=== PATIENT | female | born 1965 | race Caucasian/White ===

== ENCOUNTER 2018-02-16 20:19 | Observation (INO) ==
[2018-02-16] MEDS ORDERED: 0.9 % Sodium Chloride 1,000 ML IVC ONE (22:14)
--- NOTE | 2018-02-16 22:52 | Emergency Department Note ---
Disposition Clinical Impression: C. difficile colitis Sepsis Qualifiers: Sepsis type: sepsis due to unspecified organism Qualified Code(s): A41.9 - Sepsis, unspecified organism UTI (urinary tract infection) Qualifiers: Urinary tract infection type: site unspecified Hematuria presence: without hematuria Qualified Code(s): N39.0 - Urinary tract infection, site not specified Pneumonia Qualifiers: Pneumonia type: due to unspecified organism Laterality: left Lung location: lower lobe of lung Qualified Code(s): J18.1 - Lobar pneumonia, unspecified organism Disposition: Admitted As Inpatient Condition: Fair Time of Disposition: 00:07 Abdominal Pain HPI - General Chief Complaint: ED Abdominal Pain Stated Complaint: C-Diff per Dr. Pierre Time Seen by Provider: 02/16/18 21:01 Source: patient Mode of arrival: ambulatory Limitations: no limitations Nursing Notes Reviewed: Yes Vital Signs Reviewed: Yes - History of Present Illness HPI Narrative: 52-year-old female history of ulcerative colitis presents complaining of diarrhea and fever for the last week. Patient states she was diagnosed with C. difficile 1 week ago, she was initially started on Flagyl but then switched to oral vancomycin, she follows with Dr. ALEMAN her GI specialist, she called him today, given that she is having worsening abdominal pain fevers of 101, and was told to come in for further evaluation the hospital. Patient denies headache chest pain, she has had a dry cough as well. Patient denies dysuria hematuria. Dr. ALEMAN states that the patient should be admitted to the hospitalist Pt Subjective Complaint: abdominal pain Consistency: constant Pain Severity: moderate Pain Scale: 5 Quality: aching Radiation: none Migration to: no migration Improves with: nothing Associated symptoms: Reports: nausea, vomiting, diarrhea. Denies: fever - Related Data Home Medications Medication Instructions Recorded Confirmed Budesonide [Uceris] 9 mg PO DAILY 02/17/18 02/17/18 Lactobac #2-S. Therm-Bifido #1 1 tab PO BID 02/17/18 02/17/18 [Vsl#3 Capsule] Previous Rx's Medication Instructions Recorded Vancomycin Oral Soln [Firvanq] 125 mg PO QID 10 Days #1 udc 02/15/18 Allergies Allergy/AdvReac Type Severity Reaction Status Date / Time No Known Allergies Allergy Verified 02/15/18 18:38 All systems ED: reviewed and negative except as stated. Review of Systems: As Per HPI Constitutional: Denies: fever, chills Eyes: Denies: eye pain ENT ED: Denies: ear pain Cardiovascular: Denies: chest pain Respiratory: Reports: as per HPI, cough. Denies: dyspnea, wheezes Gastrointestinal: Reports: as per HPI, abdominal pain, nausea, diarrhea. Denies : hematemesis Genitourinary: Denies: urgency, dysuria Musculoskeletal: Denies: back pain, neck pain Integumentary: Denies: rash Abdominal Pain PMH - Past Medical History Medical history: Reports: other - Social History Smoking status: Never smoker Alcohol use: Reports: none Drug use: Reports: none Physical Exam - General General appearance: alert, in no apparent distress - Head Head exam: atraumatic - Eye Eye exam: Present: normal appearance, PERRL - ENT ENT exam: normal exam - Neck Neck exam: Present: normal inspection, full ROM - Chest Chest inspection: Present: normal inspection - Expanded Respiratory Exam Location: rales: Left, Right, decreased breath sounds: Right, Left, Lower - Cardiovascular Cardiovascular exam: Present: regular rate, normal rhythm - Abdominal Exam Abdominal exam: Present: tenderness. Absent: guarding, rebound Abdominal tenderness: Present: mild Course Course Narrative: 52-year-old female with ulcerative colitis, C. difficile, also patient is a cough, some decreased breath sounds at bases bilaterally, concern for possible pneumonia versus UTI sources for her fever, she is tachycardic fever and another indication for admission, septic workup ordered at the recommendation of GI specialist Dr. Jennings patient will be admitted to the hospital - Reevaluation(s) Reevaluation #1: I spoke with Dr. Ross, Admitted to Hospitalist Dr Carmen, patient with evidence of a pneumonia in the left lower lobe as well as a possible UTI we will send urine for culture, lactate on elevated, no other signs for severe sepsis, but patient will be getting a liter fluid, broad-spectrum antibiotics for healthcare associated pneumonia ceftriaxone and azithromycin, this should also cover for UTI, the patient will be admitted to the hospitalist service, also oral make myosin was given for her C. difficile infection. - Consultations Consultation #1: Dr Pierre consulted Vital Signs Temperature 100.2 F H 02/16/18 20:23 Pulse Rate 101 02/16/18 20:23 Respiratory Rate 16 02/16/18 20:23 Blood Pressure 134/77 02/16/18 20:23 O2 Sat by Pulse Oximetry 98 02/16/18 20:23 Temperature 98.8 F 02/17/18 03:31 Pulse Rate 75 02/17/18 03:31 Respiratory Rate 16 02/17/18 03:31 Blood Pressure 119/72 02/17/18 03:31 O2 Sat by Pulse Oximetry 95 02/17/18 03:31 Oxygen Delivery Oxygen Delivery Room Air Abdominal Pain - Differential Diagnosis Differential Diagnosis: Likely: abdominal pain non-specific, acute appendicitis , diverticulitis, diverticulosis, endometriosis - Medical Records Medical records reviewed: Yes I reviewed the patient's medical records. - Lab Data Lab results reviewed: Yes I reviewed the patient's lab results. Result diagrams: 02/16/18 22:41 02/16/18 22:41 Lab Results 02/16/18 02/16/18 02/16/18 Range/Units 22:41 22:41 22:41 WBC 12.4 H (4.3-11.1) K/mcL RBC 4.90 (3.82-4.97) M/mcL Hgb 13.6 (11.5-15.4) g/dL Hct 42.9 (35.3-44.9) % MCV 87.6 (83.0-100.0) fL MCH 27.8 L (28.0-33.3) pg MCHC 31.7 (31.6-35.5) g/dL RDW 13.2 (11.5-14.5) % Plt Count 280 (140-400) K/mcL MPV 10.1 (9.4-12.4) fL Immature Gran % 0.4 (0-4) % Seg Neutrophils % 86.2 % Lymphocytes % 5.0 % Monocytes % 8.0 % Eosinophils % 0.2 % Basophils % 0.2 % Neutrophils # 10.7 H (1.6-8.9) K/mcL Lymphocytes # 0.6 (0.6-4.6) K/mcL Monocytes # 1.0 (0.0-1.3) K/mcL Eosinophils # 0.0 (0.0-0.6) K/mcL Basophils # 0.0 (0.0-0.2) K/mcL PT 14.6 H (9.4-12.1) Seconds INR 1.3 APTT 28.6 (26.0-36.0) Seconds Sodium 135 L (136-145) mEq/L Potassium 3.5 (3.5-5.1) mEq/L Chloride 101 (98-107) mEq/L Carbon Dioxide 24 (23-29) mEq/L BUN 8 (6-20) mg/dL Creatinine 0.78 (0.60-1.20) mg/dL Est GFR ( Amer) > 60 (> 60) Est GFR (Non-Af Amer) > 60 (> 60) BUN/Creatinine Ratio 10 (6-26) Glucose 117 H (70-105) mg/dL Calculated Osmolality 279 L (280-300) Lactic Acid (0.5-2.2) mmol/L Calcium 9.0 (8.6-10.3) mg/dL Phosphorus 2.8 (2.7-4.5) mg/dL Magnesium 2.0 (1.6-2.6) mg/dL Total Bilirubin 0.5 (0.3-1.0) mg/dL Direct Bilirubin 0.2 (0.0-0.2) mg/dL Indirect Bilirubin 0.3 (0.0-1.2) mg/dL AST 16 (13-39) Units/L ALT 15 (7-52) Units/L Alkaline Phosphatase 60 (34-104) Units/L Troponin I < 0.03 (< 0.04) ng/mL Serum Total Protein 7.8 (6.4-8.9) g/dL Albumin 4.1 (3.5-5.7) g/dL Globulin 3.7 H (2.4-3.5) g/dL Albumin/Globulin Ratio 1.1 (1.1-2.2) Lipase 14 (11-82) Units/L Urine Color (Yellow) Urine Clarity (Clear) Urine pH (5.0-8.0) pH Units Ur Specific [place] (1.010-1.025) Urine Protein (Neg-Trace) mg/dL Urine Glucose (UA) (Normal) mg/dL Urine Ketones (Negative) mg/dL Urine Blood (Negative) Urine Nitrite (Negative) Urine Bilirubin (Negative) Urine Urobilinogen (Normal) mg/dL Ur Leukocyte Esterase (Negative) Urine Microscopic RBC (0-3) per hpf Urine Microscopic WBC (0-3) per hpf Ur Squamous Epith Cells (None-Few) per lpf Urine Bacteria (None-Few) per hpf Hyaline Casts (None-Few) per lpf Ur Culture Indicated? (NO) 02/16/18 02/16/18 Range/Units 22:41 23:00 WBC (4.3-11.1) K/mcL RBC (3.82-4.97) M/mcL Hgb (11.5-15.4) g/dL Hct (35.3-44.9) % MCV (83.0-100.0) fL MCH (28.0-33.3) pg MCHC (31.6-35.5) g/dL RDW (11.5-14.5) % Plt Count (140-400) K/mcL MPV (9.4-12.4) fL Immature Gran % (0-4) % Seg Neutrophils % % Lymphocytes % % Monocytes % % Eosinophils % % Basophils % % Neutrophils # (1.6-8.9) K/mcL Lymphocytes # (0.6-4.6) K/mcL Monocytes # (0.0-1.3) K/mcL Eosinophils # (0.0-0.6) K/mcL Basophils # (0.0-0.2) K/mcL PT (9.4-12.1) Seconds INR APTT (26.0-36.0) Seconds Sodium (136-145) mEq/L Potassium (3.5-5.1) mEq/L Chloride (98-107) mEq/L Carbon Dioxide (23-29) mEq/L BUN (6-20) mg/dL Creatinine (0.60-1.20) mg/dL Est GFR ( Amer) (> 60) Est GFR (Non-Af Amer) (> 60) BUN/Creatinine Ratio (6-26) Glucose (70-105) mg/dL Calculated Osmolality (280-300) Lactic Acid 1.0 (0.5-2.2) mmol/L Calcium (8.6-10.3) mg/dL Phosphorus (2.7-4.5) mg/dL Magnesium (1.6-2.6) mg/dL Total Bilirubin (0.3-1.0) mg/dL Direct Bilirubin (0.0-0.2) mg/dL Indirect Bilirubin (0.0-1.2) mg/dL AST (13-39) Units/L ALT (7-52) Units/L Alkaline Phosphatase (34-104) Units/L Troponin I (< 0.04) ng/mL Serum Total Protein (6.4-8.9) g/dL Albumin (3.5-5.7) g/dL Globulin (2.4-3.5) g/dL Albumin/Globulin Ratio (1.1-2.2) Lipase (11-82) Units/L Urine Color [place] A (Yellow) Urine Clarity Clear (Clear) Urine pH 6.0 (5.0-8.0) pH Units Ur Specific [place] > 1.030 H (1.010-1.025) Urine Protein 100 H (Neg-Trace) mg/dL Urine Glucose (UA) Normal (Normal) mg/dL Urine Ketones 80 H (Negative) mg/dL Urine Blood Large H (Negative) Urine Nitrite Negative (Negative) Urine Bilirubin Small H (Negative) Urine Urobilinogen Normal (Normal) mg/dL Ur Leukocyte Esterase Small H (Negative) Urine Microscopic RBC 50-100 H (0-3) per hpf Urine Microscopic WBC 15-30 H (0-3) per hpf Ur Squamous Epith Cells Many H (None-Few) per lpf Urine Bacteria Moderate H (None-Few) per hpf Hyaline Casts Moderate H (None-Few) per lpf Ur Culture Indicated? NO. A (NO) - Radiology Data Radiology results reviewed: Yes I reviewed the patient's radiology results. Chest X-Ray 02/16/18 22:15 IMPRESSION: Left lung atelectasis or pneumonia. D/ / Migue Chung MD / Migue Chung MD Interpreting Provider: Migue Chung MD - EKG Data EKG attestation: Yes I reviewed and interpreted this EKG. EKG shows normal: sinus rhythm Rate: normal (83 bpm NM 154 QRS 90 QRS QTc [address] segment elevations or depressions.) Attestation Statement - Attestation Attestation: I examined this patient and my medical decision-making was reviewed with the Resident Physician. I agree with the documented findings, disposition and treatment plan as described except to the extent set forth below. Findings consistent with possible C. difficile infection, the patient was sent in by gastroenterology, start oral vancomycin admit for further management at the recommendation of gastroenterology.
[2018-02-16] MEDS ORDERED: Vancomycin Oral Soln 125 MG/2.5 ML UDC PO STA (23:04)
[2018-02-16 23:05] LABS: Basophils % 0.2 %; Eosinophils % 0.2 %; Hematocrit 42.9 % (35.3-44.9); Hemoglobin 13.6 g/dL (11.5-15.4); Immature Granulocytes % 0.4 % (0-4); Lymphocytes # 0.6 K/mcL (0.6-4.6); Mean Corpuscular HGB Conc 31.7 g/dL (31.6-35.5); Mean Corpuscular Hemoglobin 27.8 pg (28.0-33.3); Mean Corpuscular Volume 87.6 fL (83.0-100.0); Mean Platelet Volume 10.1 fL (9.4-12.4); Neutrophils # 10.7 K/mcL (1.6-8.9); Platelet Count 280 K/mcL (140-400); Red Cell Distribution Width 13.2 % (11.5-14.5); Segmented Neutrophils % 86.2 %
[2018-02-16] MEDS ORDERED: Azithromycin 500 MG in D5% in Water 250 ML IVPB ONE (23:06)
[2018-02-16] MEDS ORDERED: cefTRIAXone 1,000 MG in Water for inj. (sterile) 20 ML 10 ML IVPB ONE (23:06)
[2018-02-16 23:12] LABS: Bilirubin,Urine Small (Negative); Blood,Urine Large (Negative); Clarity,Urine Clear (Clear); Color,Urine Orange (Yellow); Glucose,Urine (UA) Normal (Normal); Ketones,Urine 80 mg/dL (Negative); Leukocyte Esterase,Urine Small (Negative); Nitrite,Urine Negative (Negative); Protein,Urine 100 mg/dL (Neg-Trace); Specific Gravity,Urine > 1.030 (1.010-1.025); Urobilinogen,Urine Normal (Normal)
[2018-02-16 23:12] LABS: INR 1.3; Prothrombin Time 14.6 Seconds (9.4-12.1)
[2018-02-16 23:14] LABS: Bacteria,Urine Moderate per hpf (None-Few); Hyaline Casts,Urine Moderate per lpf (None-Few); RBC,Urine 50-100 per hpf (0-3); Squamous Epithelial Cell,Urine Many per lpf (None-Few); WBC,Urine 15-30 per hpf (0-3)
[2018-02-16 23:15] LABS: Activated Partial Thrombo Time 28.6 Seconds (26.0-36.0); Alanine Aminotransferase 15 Units/L (7-52); Albumin 4.1 g/dL (3.5-5.7); Albumin/Globulin Ratio 1.1 (1.1-2.2); Alkaline Phosphatase 60 Units/L (34-104); Aspartate Amino Transferase 16 Units/L (13-39); BUN/Creatinine Ratio 10 (6-26); Bilirubin,Direct 0.2 mg/dL (0.0-0.2); Bilirubin,Indirect 0.3 mg/dL (0.0-1.2); Bilirubin,Total 0.5 mg/dL (0.3-1.0); Blood Urea Nitrogen 8 mg/dL (6-20); Carbon Dioxide 24 mEq/L (23-29); Chloride 101 mEq/L (98-107); Globulin 3.7 g/dL (2.4-3.5); Glucose 117 mg/dL (70-105); Lipase 14 Units/L (11-82); Osmolality,Calculated 279 (280-300); Phosphorous 2.8 mg/dL (2.7-4.5); Potassium 3.5 mEq/L (3.5-5.1); Sodium 135 mEq/L (136-145); Total Protein 7.8 g/dL (6.4-8.9); Troponin I < 0.03 ng/mL (< 0.04); eGFR For African Americans > 60 (> 60); eGFR For Non-African Americans > 60 (> 60)
[2018-02-17] MEDS ORDERED: Acetaminophen 325 MG TABLET PO ONE (00:37)
--- NOTE | 2018-02-17 02:43 | Internal Med History&Physical ---
<Elizabeth Sosa - Last Filed: 02/17/18 04:32> Date of Encounter: 02/17/18 Time of Encounter: 02:34 Internal Medicine - H&P: HPI Chief complaint: fever and abdominal pain Admitted From: Home Plans for Post Hospital Care: Home History of present illness: Ms. Santiago is a 52 year old female with a past medical history of ulcerative colitis who was recently diagnosed with C. difficile one week ago and presented to the ED with worsening crampy diffuse abdominal pain and persistent fever. Patient was seen by Dr. Pierre on 01/26/18 and was having 6-7 bowel movements a day. C diff positive on 02/10/18 and started on Flagyl on 02/11/18.. On Thursday patient states that that she started feeling sick with nausea, fevers, chills, muscle aches, and abdominal cramping. She says that she has had a productive cough for about a week. Patient returned to the ED on 02/15 and was switched to oral vancomycin on 02/15/18. Today patient called Dr. Pierre as her crampy abdominal pain worsened and was noted to have a fever. Upon arrival to the ED, patient was febrile 100.2F and a HR 101. Labs showed an elevated WBC of 12.4, UA with blood, protein, and ketones but negative for nitrates. CXR shows left lower/mid lobe airspace disease and pleural effusion. Dr. Pierre was notified and desired patient to be admitted. Patient was given oral Vanco for the c diff and started on Azithormycin and Cetfriaxone for persumed CAP. Blood cultures were obtained. Patient was admitted to the floor for c diff with persistent fevers despite treatment for 5 days. ROS: denies vomiting, rash, pedal edema, dysuria, SOB, CP Past Med Surg Social Fam HX - Past Medical History Source: patient, old records reviewed Medical history: other Additional medical history: ulcerative colitis - Past Surgical History Surgical History: - Social History Smoking Status: Never smoker Alcohol use: none Drug use: none - Family History Brother Hx Family Cardiac Disorders: Yes (DVTs) Paternal Living Status: Cause of : blood clot Internal Medicine - H&P: Meds Vancomycin Oral Soln [Firvanq] 125 mg PO QID 10 Days #1 udc 02/15/18 [Rx] Budesonide [Uceris] 9 mg PO DAILY 02/17/18 [History] Lactobac #2-S. Therm-Bifido #1 [Vsl#3 Capsule] 1 tab PO BID 02/17/18 [History] 3 Allergy/AdvReac Type Severity Reaction Status Date / Time No Known Allergies Allergy Verified 02/15/18 18:38 All Systems PM: A 10-system review of systems was performed and is negative for pertinent findings except as documented above in the HPI. Review of systems: As stated in HPI - Constitutional Vitals: Temp Pulse Resp BP Pulse Ox 100.6 F H 85 18 138/83 95 02/17/18 01:11 02/17/18 01:11 02/17/18 01:11 02/17/18 01:11 02/17/18 01:11 Exam: Constitutional: Alert, in no acute distress Head: Normocephalic, atraumatic Heart: Normal, regular rate and rhythm, no murmurs Lungs: Clear to auscultation, no wheezes, rales, or rhonchi Abdomen: Soft, nondistended, nontender, bowel sounds present and normal, no guarding or rigidity. Extremities: No edema, No clubbing, radial pulse +2/4, capillary refill <2sec. Skin: Skin warm and dry, no lesions, no rashes, no jaundice Neurologic: Cranial nerves II through XII grossly intact, strength 5/5 in all extremities Psych: Cooperative with exam, good eye contact, cognitive function intact, speech clear, thought process logical, and goal directed Internal Med - H&P Results - Labs CBC & Chem 7: 02/16/18 22:41 02/16/18 22:41 - Assessment and plan (1) C. difficile colitis Current Visit: Yes Status: Acute Assessment and plan: Diagnosis on 02/10/18. Given Flagyl for 3 days then was switched in the ED to oral Vancomycin on 02/15/18. WBC= 12.4. Creatinine is wnl. No lactic acid elevation. Persistent fevers despite taking medication for the past 5 days. Plan: -Vancomycin 125mh PO QID and Flagyl 500mg TID - GI consulted - blood cultures pending - Diet: Regular (2) Ulcerative colitis Current Visit: Yes Status: Acute Assessment and plan: Continue home meds. Qualifiers: Ulcerative colitis location: ulcerative pancolitis Digestive disease complication type: with rectal bleeding Qualified Code(s): K51.011 - Ulcerative (chronic) pancolitis with rectal bleeding (3) DVT prophylaxis Current Visit: Yes Status: Acute Assessment and plan: heparin SQ - Pt is at increased risk for DVTs as Fhx of dad of a blood clot of unknown location, c diff, and UC. Patient does admit to some blood in stool from UC but hemoglobin is wnl. (4) Cough Current Visit: Yes Status: Acute Assessment and plan: Productive cough with clear sputum but patient believes it is more sinus related. CXR does not show consolidation. Patient is most likely tachycardic, febrile, and leukocytosis due to c. diff as her main complaint is abdominal pain and was not complaining about a cough or SOB and lung sounds are clear. Will obtain CXR 2 view before continuing antibiotic treatment for CAP. Unnecessary antibiotic treatment can worsen her c diff and UC, so will confirm pneumonia before continuing with antibiotics. Plan: - CXR 2 view, awaiting results to determine antibiotic need - Time Spent With Patient Total time spent is greater than 50% in coordination of care (as documented) at patient's floor/unit and/or counseling patient: <Domenic Rogers - Last Filed: 02/17/18 06:17> Date of Encounter: 02/17/18 Time of Encounter: 05:30 - Constitutional Constitutional: chills, fever(s), no night sweats - EENT Eyes: no blurry vision, no change in vision Ears: no ear pain, no tinnitus Nose, mouth and throat: nasal congestion, post-nasal drip, sinus pressure, no sore throat - Cardiovascular Cardiovascular ROS IM: no chest pain, no dyspnea, no syncope - Respiratory Respiratory: cough, no dyspnea, no dyspnea on exertion, no wheezing, no chest congestion, no excessive phlegm production, no change in phlegm color - Gastrointestinal Gastrointestinal: abdominal pain, cramping, diarrhea, nausea, no heartburn, no hematemesis, no hematochezia, no melena, no vomiting - Genitourinary Genitourinary: no dysuria, no flank pain, no hematuria, no urinary urgency - Musculoskeletal Musculoskeletal ROS IM: muscle cramps, no arthralgias, no back pain - Integumentary Integumentary IM: no rash, no jaundice - Neurological Neurological ROS: no dizziness, no focal weakness, no frequent falls, no headache(s) - Psychiatric Psychiatric: no anxiety, no depression - Endocrine Endocrine IM: no polydipsia, no polyuria - Hematologic/Lymphatic Hematologic/Lymphatic: no easy bruising - Allergic/Immunologic Allergic/Immunologic: GI upset with certain foods - Constitutional Vitals: Temp Pulse Resp BP Pulse Ox 98.8 F 75 16 119/72 95 02/17/18 03:31 02/17/18 03:31 02/17/18 03:31 02/17/18 03:31 02/17/18 03:31 General appearance: Present: cooperative, pleasant, no acute distress, answers questions appropriately - Head Head exam: Present: atraumatic, normal inspection - Eye Eye exam: Present: EOMI, normal appearance. Absent: PERRL, scleral icterus Pupils: Present: normal accommodation - ENT ENT exam: Present: mucous membranes dry, normal exam Additional comments: no ulcers - Respiratory Respiratory exam: Present: CTAB. Absent: rales, rhonchi, wheezes - Cardiovascular Cardiovascular exam: Present: RRR, +S1, +S2 - GI/Abdominal GI/Abdominal exam: Present: normal bowel sounds, soft, tenderness (mild diffuse) , no peritoneal signs. Absent: guarding, hepatomegaly, mass, rebound, splenomegaly - Extremities Exam Extremities exam: Present: full ROM, normal capillary refill, warm, radial pulses palpable and symmetrical. Absent: calf tenderness, pedal edema, tenderness - Back Exam Back exam: Absent: CVA tenderness (L), CVA tenderness (R) - Neurological Exam Neurological exam: Present: no focal deficits - Skin Skin exam: Present: dry, warm Internal Med - H&P Results - Labs CBC & Chem 7: 02/16/18 22:41 02/16/18 22:41 - Diagnostic Studies Chest x-ray Status: image reviewed by me (do not appreciate infiltrate; poor quality AP film ; recommend PA/lateral CXR) - Attending Attestation I discussed the patient past medical history, review of systems, lab data, imaging studies, and exam findings with Dr. Sosa. I then saw and examined patient independently as well. Patient was recently started on antibiotics for her first episode of Clostridium difficile colitis. She has been on antibiotics roughly 4-5 days and has not yet failed outpatient treatment. However, given her comorbidity (ulcerative colitis), she was advised come to the ER for admission and further treatment. She has had some low-grade fevers and chills at home. She has had some nausea, occasional vomiting, and diarrhea as expected. I suspect that this is all related to her Clostridium Difficile Colitis and/or ulcerative colitis. She denies any shortness of breath or pleuritic chest pain. She has had a dry cough. She denies any dysuria, hematuria, urinary urgency, or frequency. On exam, she appears well-hydrated, pink and perfused, and has minimal abdominal pain on palpation. I would repeat her chest x-ray with 2 views and follow her clinically. I am not inclined to treat for possible pneumonia and/ or UTI at this time as she is asymptomatic. Further antibiotics may complicate her ongoing C. difficile infection. We will continue her on double treatment with metronidazole and vancomycin enterally. We will consult GI for further guidance. We will culture her urine and follow her blood and urine cultures respectively. If her clinical picture dictates, we will amend her treatment measures. Other than the above and my noted exam findings, I agree with Dr. Sosa's assessment and plan. - Assessment and plan (1) C. difficile colitis Current Visit: Yes Status: Acute (2) Ulcerative colitis Current Visit: Yes Status: Acute Qualifiers: Ulcerative colitis location: ulcerative pancolitis Digestive disease complication type: with rectal bleeding Qualified Code(s): K51.011 - Ulcerative (chronic) pancolitis with rectal bleeding (3) DVT prophylaxis Current Visit: Yes Status: Acute (4) Cough Current Visit: Yes Status: Acute - Time Spent With Patient Total time spent is greater than 50% in coordination of care (as documented) at patient's floor/unit and/or counseling patient:
[2018-02-17] MEDS ORDERED: Naloxone 0.4 MG/ML INJ IVP PRN (03:39)
[2018-02-17] MEDS ORDERED: *HR* Promethazine 25 MG/ML VIAL IVP PRN (04:54)
[2018-02-17] MEDS ORDERED: Ondansetron 4 MG/2 ML VIAL IVP PRN (04:54)
[2018-02-17] MEDS: *HR* Heparin 5,000 UNIT/ML VIAL SQ SCH ×2 (05:42→15:36)
[2018-02-17] MEDS: Lactobacillus 1 EACH CAP.SPRINK PO SCH ×2 (08:46→20:13)
[2018-02-17] MEDS: Vancomycin Oral Soln 125 MG/2.5 ML UDC PO SCH ×4 (08:47→20:13)
[2018-02-17] MEDS: Acetaminophen 325 MG TABLET PO PRN ×3 (08:52→22:56)
[2018-02-17] MEDS ORDERED: metroNIDAZOLE 500 MG TABLET PO SCH (09:00)
[2018-02-17] MEDS ORDERED: BUDESONIDE 9 MG PO SCH (09:00)
--- NOTE | 2018-02-17 10:41 | Gastroenterology Consult Note ---
Date of Encounter: 02/17/18 Time of Encounter: 10:00 - Assessment and plan (1) Clostridium difficile diarrhea Current Visit: No Status: Acute Assessment and plan: Patient was seen by Dr. Pierre on 01/26/18 and was having 6-7 bowel movements a day. C diff positive on 02/10/18 and started on Flagyl on 02/11/18, which was changed to PO Vanco at the ED on 02/15. Abdominal cramping and diarrhea are improving. Continue PO Vanco. Last fever was 100.6 overnight. (2) Ulcerative colitis Current Visit: Yes Status: Acute Assessment and plan: Patient is currently on Uceris, she did not do well on Apriso and has failed Lialda. Patient is also taking Tumeric. Qualifiers: Ulcerative colitis location: ulcerative pancolitis Digestive disease complication type: with rectal bleeding Qualified Code(s): K51.011 - Ulcerative (chronic) pancolitis with rectal bleeding - Time Spent With Patient Total time spent is greater than 50% in coordination of care (as documented) at patient's floor/unit and/or counseling patient: GI History of Present Illness - Data of Consult Patient: known to practice within the last 3 years Consult date: 02/17/18 Requesting Physician: Pura Nagy MD - Consult Narrative Reason for consult: C diff History of present illness: Ms. Santiago is a 52 year old female with PMHx of ulcerative colitis who tested C diff positive on 02/10/18 and presented to the ED with worsening crampy diffuse abdominal pain and persistent fever. Patient was seen by Dr. Pierre on 01/26/18 and was having 6-7 bowel movements a day. C diff positive on 02/10/18 and started on Flagyl on 02/11/18. On Thursday patient states that that she started feeling sick with nausea, fevers, chills, muscle aches, and abdominal cramping. Patient returned to the ED on 02/15 and was switched to oral Vancomycin on 02/15/18. She called our office yesterday as her crampy abdominal pain worsened and was noted to have a fever. Pt presented to the ED with temp 100.2, HR 101, and WBC 12.4. CXR shows left lower/mid lobe airspace disease and pleural effusion. Patient was given oral Vanco for the c diff and started on Azithormycin and Cetfriaxone for presumed CAP. Pt reports feeling better today and states her abdominal cramping has improved since starting the Vancomycin. Procedures: Colonoscopy 04/04/2015 Dr. Fan: Continuous area of nonbleednig ulcerated mucosa in rectum. NSAIDs: None Anticoagulation: None Past Med Surg Social Fam HX - Past Medical History Medical history: other Additional medical history: ulcerative colitis Psychiatric history: no psych history - Past Surgical History Surgical History: - Social History Smoking Status: Never smoker Smokeless Tobacco Status: No Alcohol use: none Drug use: none - Family History Brother Hx Family Cardiac Disorders: Yes (DVTs) Paternal Living Status: Cause of : blood clot - Gastrointestinal Gastrointestinal: Present: as per HPI - Constitutional Constitutional: as per HPI - EENT Eyes: as per HPI Ears: Present: as per HPI Nose, mouth and throat: Present: as per HPI - Cardiovascular Cardiovascular ROS: Present: as per HPI - Respiratory Respiratory IM: Present: as per HPI - Genitourinary Genitourinary: Absent: change in color, Urinary frequency - Neurological ROS Neurological GI: Present: as per HPI - Hematologic/Lymphatic Hematologic/Lymphatic pediatric: Present: as per HPI - Musculoskeletal Musculoskeletal ROS GI: Present: as per HPI - Integumentary Integumentary GI: Present: as per HPI - Psychiatric ROS Psychiatric GI: Present: as per HPI - Endocrine Endocrine IM: Present: as per HPI - Constitutional Vitals: Temp Pulse Resp BP Pulse Ox 99.8 F H 76 16 149/85 99 02/17/18 07:07 02/17/18 07:07 02/17/18 07:07 02/17/18 07:07 02/17/18 07:07 General appearance: Present: cooperative, A&O X 3, no acute distress, answers questions appropriately - Head Head exam: Present: atraumatic, normocephalic - Eye Eye exam: Present: normal appearance, sclera anicteric - ENT ENT exam: Present: mucous membranes moist - Neck Neck exam general surgery: Present: normal inspection, trachea midline - Respiratory Respiratory exam: Present: CTAB. Absent: rales, rhonchi - Cardiovascular Cardiovascular exam: Present: RRR, +S1, +S2 - GI/Abdominal GI/Abdominal exam: Present: soft, no peritoneal signs. Absent: distended, firm , guarding, tenderness - Rectal Rectal exam: Present: deferred - Extremities Exam Extremities exam: Present: warm - Neurological Exam Neurological exam: Present: no focal deficits - Psychiatric Psychiatric exam: Present: normal affect, normal mood - Skin Skin exam: Present: dry, intact, normal color, warm Results - Labs CBC & Chem 7: 02/16/18 22:41 02/16/18 22:41 Labs: Last Result Calcium 9.0 mg/dL (8.6-10.3) 02/16/18 22:41 Troponin I < 0.03 ng/mL (< 0.04) 02/16/18 22:41 Entire Visit Hgb 13.6 g/dL (11.5-15.4) 02/16/18 22:41 Hct 42.9 % (35.3-44.9) 02/16/18 22:41 PT 14.6 Seconds (9.4-12.1) H 02/16/18 22:41 Total Bilirubin 0.5 mg/dL (0.3-1.0) 02/16/18 22:41 AST 16 Units/L (13-39) 02/16/18 22:41 ALT 15 Units/L (7-52) 02/16/18 22:41 Lipase 14 Units/L (11-82) 02/16/18 22:41 - ABG ABG results: PT/INR, D-dimer PT 14.6 Seconds (9.4-12.1) H 02/16/18 22:41 - Impressions Impressions Chest X-Ray 02/17/18 05:04 IMPRESSION: Mild left perihilar infiltrate, most compatible with an early/ developing pneumonia. D/ / Donta Lee MD / Donta Lee MD Interpreting Provider: Donta Lee MD Consult Discharge Plan - Plan Referrals: Arturo Stevens Jr, MD [Primary Care Provider] -
[2018-02-17] MEDS ORDERED: ALPRAZolam 0.25 MG TABLET PO PRN (13:54)
--- NOTE | 2018-02-17 15:33 | Internal Med Progress Note ---
Date of Encounter: 02/17/18 Time of Encounter: 09:00 - Assessment and plan (1) Pneumonia Current Visit: Yes Status: Acute Assessment and plan: Chest x-ray reviewed independently, possible left perihilar infiltrate. Start IV Rocephin and azithromycin as patient also complains of intermittent dyspnea. Continue supportive care and supplemental oxygen as needed. Follow-up peripheral blood cultures. Qualifiers: Pneumonia type: due to unspecified organism Laterality: left Lung location: lower lobe of lung Qualified Code(s): J18.1 - Lobar pneumonia, unspecified organism (2) C. difficile colitis Current Visit: Yes Status: Acute Assessment and plan: Diagnosed on 02/10/2018, received 2-3 days of by mouth Flagyl, later changed to by mouth vancomycin. GI consult noted, continue by mouth vancomycin- day 2 for now. Probiotics. Supportive care. (3) Ulcerative colitis Current Visit: Yes Status: Chronic Assessment and plan: She follows with GI as outpatient, noted to be on oral budesonide at home, which is nonformulary and patient does not have her home medication. Will resume when available. Qualifiers: Ulcerative colitis location: ulcerative pancolitis Digestive disease complication type: with rectal bleeding Qualified Code(s): K51.011 - Ulcerative (chronic) pancolitis with rectal bleeding (4) DVT prophylaxis Current Visit: Yes Status: Acute Assessment and plan: heparin SQ - Time Spent With Patient Total time spent is greater than 50% in coordination of care (as documented) at patient's floor/unit and/or counseling patient: - Subjective Interval history: Patient reports improving abdominal pain and cramping, continues to have loose watery diarrhea, 5-6 times a day along with nausea, generalized weakness, subjective fevers and chills. Tolerates oral diet. - Constitutional Vitals: Temp Pulse Resp BP Pulse Ox 100.0 F H 83 15 132/76 95 02/17/18 10:48 02/17/18 10:48 02/17/18 10:48 02/17/18 10:48 02/17/18 10:48 General appearance: Present: cooperative, A&O X 3, answers questions appropriately - Respiratory Respiratory exam: Present: CTAB. Absent: accessory muscle use, rales, rhonchi, wheezes - Cardiovascular Cardiovascular exam: Present: RRR, +S1, +S2. Absent: diastolic murmur, gallop, rubs, systolic murmur - GI/Abdominal GI/Abdominal exam: Present: normal bowel sounds, soft (obese), no peritoneal signs. Absent: distended, tenderness - Extremities Exam Extremities exam: Present: full ROM, warm, radial pulses palpable and symmetrical. Absent: calf tenderness, cyanotic, pedal edema - Neurological Exam Neurological exam: Present: CN II-XII intact, oriented X3, no focal deficits. Absent: pronater drift, facial droop, speech deficit Internal Medicine: Result - Labs CBC & Chem 7: 02/16/18 22:41 02/16/18 22:41 - ABG Interpretation ABG results: PT/INR, D-dimer PT 14.6 Seconds (9.4-12.1) H 02/16/18 22:41 - Impressions Impressions Chest X-Ray 02/17/18 05:04 IMPRESSION: Mild left perihilar infiltrate, most compatible with an early/ developing pneumonia. D/ / Donta Lee MD / Donta Lee MD Interpreting Provider: Donta Lee MD Consult Discharge Plan - Plan Referrals: Arturo Stevens Jr, MD [Primary Care Provider] -
--- NOTE | 2018-02-17 19:49 | Electrocardiograph Report ---
[address] [place] [address] Test Date: 2018-02-16 Pat Name: Kim Santiago Department: 103 Room: 2A22 Gender: F Contracting Officer: MIESHA : 1965 Requested By: Liam Ashraf Order Number: [id number] Reading MD: Sawyer Sloan Measurements Intervals [place] Rate: 83 P: 39 AR: 154 QRS: 30 QRSD: 90 T: 3 QT: 345 QTc: 385 Interpretive Statements SINUS RHYTHM LEFT ATRIAL ENLARGEMENT Electronically Signed On 02-17-2018 19:47:50 EDT by Sawyer Sloan
[2018-02-17] MEDS: cefTRIAXone 1,000 MG in Water for inj. (sterile) 20 ML 10 ML IVP SCH (22:54)
[2018-02-17] MEDS ORDERED: Azithromycin 500 MG in D5% in Water 250 ML IVPB SCH (23:00)
[2018-02-18] MEDS: *HR* Heparin 5,000 UNIT/ML VIAL SQ SCH ×2 (05:02→17:28)
[2018-02-18 06:15] LABS: Basophils % 0.3 %; Eosinophils # 0.1 K/mcL (0.0-0.6); Eosinophils % 1.2 %; Hematocrit 37.2 % (35.3-44.9); Immature Granulocytes % 0.5 % (0-4); Lymphocytes # 0.8 K/mcL (0.6-4.6); Lymphocytes % 13.8 %; Mean Corpuscular HGB Conc 31.7 g/dL (31.6-35.5); Mean Corpuscular Hemoglobin 27.8 pg (28.0-33.3); Mean Corpuscular Volume 87.5 fL (83.0-100.0); Mean Platelet Volume 10.2 fL (9.4-12.4); Monocytes # 0.6 K/mcL (0.0-1.3); Monocytes % 11.1 %; Neutrophils # 4.2 K/mcL (1.6-8.9); Platelet Count 293 K/mcL (140-400); Red Blood Count 4.25 M/mcL (3.82-4.97); Red Cell Distribution Width 13.2 % (11.5-14.5); Segmented Neutrophils % 73.1 %
[2018-02-18 06:34] LABS: BUN/Creatinine Ratio 11 (6-26); Blood Urea Nitrogen 7 mg/dL (6-20); Calcium 8.7 mg/dL (8.6-10.3); Carbon Dioxide 27 mEq/L (23-29); Chloride 103 mEq/L (98-107); Glucose 98 mg/dL (70-105); Hemoglobin 11.8 g/dL (11.5-15.4); Osmolality,Calculated 284 (280-300); Potassium 3.3 mEq/L (3.5-5.1); Sodium 138 mEq/L (136-145); eGFR For African Americans > 60 (> 60); eGFR For Non-African Americans > 60 (> 60)
[2018-02-18] MEDS: Acetaminophen 325 MG TABLET PO PRN ×2 (06:50→14:31)
[2018-02-18] MEDS ORDERED: BUDESONIDE 9 MG PO SCH (09:00)
[2018-02-18] MEDS: Vancomycin Oral Soln 125 MG/2.5 ML UDC PO SCH ×4 (09:19→22:14)
[2018-02-18] MEDS: Lactobacillus 1 EACH CAP.SPRINK PO SCH ×2 (09:19→22:13)
[2018-02-18] MEDS: BUDESONIDE 9 MG PO SCH (09:20)
[2018-02-18] MEDS ORDERED: Potassium Chloride Elixir 20 MEQ/15 ML UDC PO ONE (11:12)
--- NOTE | 2018-02-18 16:19 | Internal Med Progress Note ---
Date of Encounter: 02/18/18 Time of Encounter: 09:30 - Assessment and plan (1) Pneumonia Current Visit: Yes Status: Acute Assessment and plan: Chest x-ray reviewed independently, possible left perihilar infiltrate. Continue IV Rocephin and azithromycin. Continue supportive care and supplemental oxygen as needed. Preliminary peripheral blood cultures negative. Qualifiers: Pneumonia type: due to unspecified organism Laterality: left Lung location: lower lobe of lung Qualified Code(s): J18.1 - Lobar pneumonia, unspecified organism (2) C. difficile colitis Current Visit: Yes Status: Acute Assessment and plan: Diagnosed on 02/10/2018, received 2-3 days of by mouth Flagyl, later changed to by mouth vancomycin. GI consult noted, continue by mouth vancomycin- day 3 for now. Probiotics. Supportive care. (3) Ulcerative colitis Current Visit: Yes Status: Chronic Assessment and plan: She follows with GI as outpatient, noted to be on oral budesonide at home, resumed now. Qualifiers: Ulcerative colitis location: ulcerative pancolitis Digestive disease complication type: with rectal bleeding Qualified Code(s): K51.011 - Ulcerative (chronic) pancolitis with rectal bleeding (4) DVT prophylaxis Current Visit: Yes Status: Acute (5) Sepsis Current Visit: Yes Status: Ruled-out Qualifiers: Sepsis type: sepsis due to unspecified organism Qualified Code(s): A41.9 - Sepsis, unspecified organism - Time Spent With Patient Total time spent is greater than 50% in coordination of care (as documented) at patient's floor/unit and/or counseling patient: - Subjective Interval history: Feels much better compared to yesterday. Had low grade fever last night. No nausea, vomiting, continues to have nonbloody watery diarrhea more than 5-6 times per day along with mild abdominal cramping. - Constitutional Vitals: Temp Pulse Resp BP Pulse Ox 98.5 F 71 16 130/84 97 02/18/18 16:08 02/18/18 16:08 02/18/18 16:08 02/18/18 16:08 02/18/18 16:08 General appearance: Present: cooperative, A&O X 3, answers questions appropriately - Respiratory Respiratory exam: Present: CTAB. Absent: accessory muscle use, rales, rhonchi, wheezes - Cardiovascular Cardiovascular exam: Present: RRR, +S1, +S2. Absent: diastolic murmur, gallop, rubs, systolic murmur - GI/Abdominal GI/Abdominal exam: Present: normal bowel sounds, soft, no peritoneal signs. Absent: distended, tenderness - Extremities Exam Extremities exam: Present: full ROM, warm, radial pulses palpable and symmetrical. Absent: calf tenderness, cyanotic, pedal edema Internal Medicine: Result - Labs CBC & Chem 7: 02/18/18 04:00 02/18/18 04:00 Labs: Short CBC 02/18/18 Range/Units 04:00 WBC 5.8 D (4.3-11.1) K/mcL Hgb 11.8 D (11.5-15.4) g/dL Hct 37.2 (35.3-44.9) % Plt Count 293 (140-400) K/mcL Neutrophils # 4.2 (1.6-8.9) K/mcL BMP 02/18/18 04:00 Sodium 138 Potassium 3.3 L Chloride 103 Carbon Dioxide 27 BUN 7 Creatinine 0.64 Glucose 98 Calcium 8.7 - ABG Interpretation ABG results: PT/INR, D-dimer PT 14.6 Seconds (9.4-12.1) H 02/16/18 22:41 Consult Discharge Plan - Plan Referrals: Arturo Stevens Jr, MD [Primary Care Provider] - (Web Request 02/18/2018)
[2018-02-18] MEDS ORDERED: Azithromycin 250 MG TABLET PO SCH (21:00)
[2018-02-18] MEDS: cefTRIAXone 1,000 MG in Water for inj. (sterile) 20 ML 10 ML IVP SCH (22:14)
[2018-02-19] MEDS: *HR* Heparin 5,000 UNIT/ML VIAL SQ SCH (05:07)
[2018-02-19 05:26] LABS: Basophils % 0.8 %; Eosinophils # 0.1 K/mcL (0.0-0.6); Eosinophils % 1.8 %; Hematocrit 35.2 % (35.3-44.9); Hemoglobin 11.2 g/dL (11.5-15.4); Immature Granulocytes % 0.5 % (0-4); Lymphocytes # 0.6 K/mcL (0.6-4.6); Lymphocytes % 15.6 %; Mean Corpuscular HGB Conc 31.8 g/dL (31.6-35.5); Mean Corpuscular Hemoglobin 27.5 pg (28.0-33.3); Mean Corpuscular Volume 86.5 fL (83.0-100.0); Mean Platelet Volume 10.3 fL (9.4-12.4); Monocytes # 0.4 K/mcL (0.0-1.3); Neutrophils # 2.8 K/mcL (1.6-8.9); Platelet Count 323 K/mcL (140-400); Red Blood Count 4.07 M/mcL (3.82-4.97); Red Cell Distribution Width 13.2 % (11.5-14.5); Segmented Neutrophils % 70.3 %
[2018-02-19 05:40] LABS: BUN/Creatinine Ratio 15 (6-26); Blood Urea Nitrogen 8 mg/dL (6-20); Calcium 8.8 mg/dL (8.6-10.3); Carbon Dioxide 27 mEq/L (23-29); Chloride 105 mEq/L (98-107); Glucose 106 mg/dL (70-105); Osmolality,Calculated 283 (280-300); Potassium 4.1 mEq/L (3.5-5.1); Sodium 137 mEq/L (136-145); eGFR For African Americans > 60 (> 60); eGFR For Non-African Americans > 60 (> 60)
[2018-02-19] MEDS: Lactobacillus 1 EACH CAP.SPRINK PO SCH (10:35)
[2018-02-19] MEDS: Vancomycin Oral Soln 125 MG/2.5 ML UDC PO SCH (10:36)
[2018-02-19] MEDS: BUDESONIDE 9 MG PO SCH (10:37)
[2018-02-19 11:11] VITALS: BP 132/73
--- NOTE | 2018-02-19 11:14 | Discharge Summary ---
- NOTES TO OUTPATIENT PROVIDER Notes to Outpatient Provider: c.diff infection, started treatment as outpatient , to finish 10-day course of PO Vancomycin Orders not resulted at time of discharge: Pending orders 02/17/18 00:01 Culture,Urine [RM] Stat Date of Encounter: 02/19/18 Time of Encounter: 11:12 - Discharge Diagnosis (1) Pneumonia Priority: Primary Status: Acute Qualifiers: Pneumonia type: due to unspecified organism Laterality: left Lung location: lower lobe of lung Qualified Code(s): J18.1 - Lobar pneumonia, unspecified organism (2) C. difficile colitis Priority: Primary Status: Acute (3) Ulcerative colitis Priority: Secondary Status: Chronic Qualifiers: Ulcerative colitis location: ulcerative pancolitis Digestive disease complication type: with rectal bleeding Qualified Code(s): K51.011 - Ulcerative (chronic) pancolitis with rectal bleeding (4) Sepsis Priority: Primary Status: Ruled-out Qualifiers: Sepsis type: sepsis due to unspecified organism Qualified Code(s): A41.9 - Sepsis, unspecified organism Hospital course: Ms. Santiago is a 52 year old female with the above medical problems who was admitted with generalized weakness, diarrhea, fever/chills. Patient was recently diagnosed with C. difficile diarrhea as an outpatient, received 2 days of oral Flagyl, which was then switched to oral vancomycin, that was started on 02/15/2018. She continued to feel weak along with subjective fevers and diarrhea and came back to the emergency room. She was noted to have mild leukocytosis and diarrhea, she was continued on oral vancomycin. GI was consulted with no new recommendations. Electrolyte abnormalities hypokalemia was corrected. Chest x-ray showed possible left perihilar infiltrate and she received IV Rocephin and azithromycin in the hospital. She is currently feeling much better and is medically stable for discharge with outpatient GI follow-up. Discharge discussed with: patient, nurse - Time Spent with Patient Total time spent providing and/or coordinating discharge services: Greater than 30 minutes (40 min) - Discharge Medications Prescriptions: Doxycycline 100 mg PO BID #10 capsule Home Medications: Vancomycin Oral Soln [Firvanq] 125 mg PO QID 10 Days #1 udc 02/15/18 [Rx] Aloe Vera 25 mg PO DAILY 02/17/18 [History] Budesonide [Uceris] 9 mg PO DAILY 02/17/18 [History] Lactobac #2-S. Therm-Bifido #1 [Vsl#3 Capsule] 1 tab PO BID 02/17/18 [History] Multivitamin/Iron/Folic Acid [Centrum Women Tablet] 1 tab PO DAILY 02/17/18 [ History] Turmeric Root Extract [Turmeric] 500 mg PO BID 02/17/18 [History] Acetaminophen [Tylenol] 650 mg PO Q6HR PRN tablet 02/19/18 [Rx] Doxycycline 100 mg PO BID #10 capsule 02/19/18 [Rx] Allergies/Adverse Reactions: 3 Allergy/AdvReac Type Severity Reaction Status Date / Time No Known Allergies Allergy Verified 02/17/18 07:53 Date of admission: 02/17/18 00:13 Primary care physician: Arturo Stevens Jr, MD Discharging clinician: Pura Nagy Anticipated date of discharge: 02/19/18 - Constitutional Vitals: Temp Pulse Resp BP Pulse Ox 97.7 F 64 16 132/73 96 02/19/18 11:10 02/19/18 11:10 02/19/18 11:10 02/19/18 11:10 02/19/18 11:10 General appearance: Present: cooperative, A&O X 3, answers questions appropriately - Cardiovascular Cardiovascular exam: Present: RRR, +S1, +S2. Absent: diastolic murmur, gallop, rubs, systolic murmur - Patient Status Disposition: Home, Self-Care Condition: Good Functional capacity at discharge: independent ambulation Overall status at discharge: patient is progressing back to baseline - Discharge Instructions Instructions: Clostridium Difficile Infection (DC) Follow Up With: sabina leblanc [Other] (web request sent 02/19/18) Arturo Stevens Jr, MD [Primary Care Provider] - (Web Request 02/18/2018) Additional Instructions: F/up with PCP in 1-2 weeks F/up with GI in 3-4 weeks - Diet and Activity Activity: resume usual activities as tolerated Diet: low fat, low cholesterol, low salt diet
== END 2018-02-19 12:00 | disposition home or self-care (01) ==
LOC: EMEROO 20:19 → 2ANU 20:19 → SUATTDRO 02-17 00:13 → 2ANU 02-17 00:45
PROVIDERS: ADMIT Internal Medicine; ATTEND Internal Medicine

== ENCOUNTER 2021-10-05 12:06 | Inpatient (IN) ==
[2021-10-05] MEDS ORDERED: 0.9 % Sodium Chloride 1,000 ML IV ONE (12:22)
[2021-10-05 13:16] LABS: Amorphous Sediment,Urine Few per hpf (None-Few); Bacteria,Urine Few per hpf (None-Few); Bilirubin,Urine Negative (Negative); Blood,Urine Moderate (Negative); Clarity,Urine Turbid (Clear); Color,Urine Yellow (Yellow); Glucose,Urine (UA) Normal (Normal); Ketones,Urine 20 mg/dL (Negative); Leukocyte Esterase,Urine Small (Negative); Mucus,Urine Moderate per lpf (None-Few); Nitrite,Urine Negative (Negative); PH,Urine 5.5 pH Units (5.0-8.0); Protein,Urine 50 mg/dL (Neg-Trace); Specific Gravity,Urine 1.025 (1.010-1.025); Squamous Epithelial Cell,Urine Moderate per hpf (None-Few); Transitional Epi Cells,Urine Few per hpf (None-Few); Urobilinogen,Urine Normal (Normal); WBC,Urine 15-30 per hpf (0-3)
[2021-10-05 13:59] LABS: Basophils # 0.1 K/mcL (0.0-0.2); Eosinophils % 13.4 %; Hematocrit 42.3 % (35.3-44.9); Hemoglobin 13.2 g/dL (11.5-15.4); Immature Granulocytes % 0.3 % (0-4); Lymphocytes # 1.2 K/mcL (0.6-4.6); Lymphocytes % 16.8 %; Mean Corpuscular HGB Conc 31.2 g/dL (31.6-35.5); Mean Corpuscular Volume 89.8 fL (83.0-100.0); Mean Platelet Volume 10.1 fL (9.4-12.4); Monocytes # 0.8 K/mcL (0.0-1.3); Monocytes % 11.3 %; Neutrophils # 4.2 K/mcL (1.6-8.9); Platelet Count 360 K/mcL (140-400); Red Blood Count 4.71 M/mcL (3.82-4.97); Segmented Neutrophils % 57.2 %; White Blood Count 7.3 K/mcL (4.3-11.1)
[2021-10-05 14:27] LABS: Alanine Aminotransferase 15 Units/L (7-52); Albumin 3.8 g/dL (3.5-5.7); Alkaline Phosphatase 68 Units/L (34-104); Aspartate Amino Transferase 16 Units/L (13-39); BUN/Creatinine Ratio 12 (6-26); Bilirubin,Total 0.5 mg/dL (0.3-1.0); Blood Urea Nitrogen 10 mg/dL (6-20); Calcium 8.9 mg/dL (8.6-10.3); Carbon Dioxide 26 mEq/L (23-29); Chloride 105 mEq/L (98-107); Globulin 3.7 g/dL (2.4-3.5); Glucose 95 mg/dL (70-105); Osmolality,Calculated 289 (280-300); Potassium 3.7 mEq/L (3.5-5.1); Sodium 140 mEq/L (136-145); Total Protein 7.5 g/dL (6.4-8.9); eGFR For African Americans > 60 (> 60); eGFR For Non-African Americans > 60 (> 60)
[2021-10-05] MEDS ORDERED: cefTRIAXone 1,000 MG in Water for inj. (sterile) 10 ML IVP ONE (15:49)
[2021-10-05] MEDS ORDERED: 0.9 % Sodium Chloride 500 ML IV ONE (15:50)
[2021-10-05] MEDS ORDERED: Ondansetron 4 MG/2 ML VIAL IVP ONE (15:50)
[2021-10-05] MEDS ORDERED: Isovue-370 500 ML BOTTLE IVP ONE (17:54)
[2021-10-05 20:31] LABS: Influenza A PCR Negative (Negative); Influenza B PCR Negative (Negative); Resp. Syncytial Virus PCR Negative (Negative)
[2021-10-05 20:33] LABS: SARS-CoV-2 by PCR (In House) Negative (Negative)
[2021-10-05] MEDS ORDERED: Naloxone 0.4 MG/ML INJ IVP PRN (22:26)
[2021-10-05] MEDS ORDERED: Acetaminophen 325 MG TABLET PO PRN (22:26)
[2021-10-05] MEDS: 0.9 % Sodium Chloride 1,000 ML IVC SCH (22:47)
[2021-10-05 22:56] LABS: C-Reactive Protein 44 mg/L (Less than 10)
[2021-10-05] MEDS ORDERED: predniSONE 20 MG TABLET PO SCH (23:15)
[2021-10-05] MEDS: Ondansetron 4 MG/2 ML VIAL IVP PRN (23:46)
[2021-10-06] MEDS ORDERED: cefTRIAXone 1,000 MG in 0.9 % Sodium Chloride Mini Bag 100 ML IVPB SCH (04:00)
[2021-10-06] MEDS ORDERED: MethylPREDNISolone 40 MG/ML VIAL IVP SCH ×4 (05:20→11:30)
[2021-10-06] MEDS: Multivit/Ca/Min/Fe/FA 1 TAB TABLET PO SCH (08:04)
[2021-10-06] MEDS: Lactobacillus 1 EACH CAP.SPRINK PO SCH (08:04)
[2021-10-06 08:41] LABS: Hematocrit 34.7 % (35.3-44.9); Hemoglobin 10.7 g/dL (11.5-15.4); Mean Corpuscular HGB Conc 30.8 g/dL (31.6-35.5); Mean Corpuscular Hemoglobin 27.9 pg (28.0-33.3); Mean Corpuscular Volume 90.6 fL (83.0-100.0); Mean Platelet Volume 9.9 fL (9.4-12.4); Platelet Count 345 K/mcL (140-400); Red Blood Count 3.83 M/mcL (3.82-4.97); White Blood Count 6.8 K/mcL (4.3-11.1)
[2021-10-06 09:03] LABS: BUN/Creatinine Ratio 10 (6-26); Blood Urea Nitrogen 5 mg/dL (6-20); Calcium 6.3 mg/dL (8.6-10.3); Carbon Dioxide 19 mEq/L (23-29); Chloride 114 mEq/L (98-107); Chol/HDL Ratio 4.7 (0-4.9); Cholesterol 112 mg/dL (< 200); Glucose 93 mg/dL (70-105); HDL Cholesterol 24 mg/dL (40-59); LDL Cholesterol,Calculated 76 mg/dL (< 100); Magnesium 1.5 mg/dL (1.6-2.6); Osmolality,Calculated 289 (280-300); Sodium 141 mEq/L (136-145); Triglycerides 59 mg/dL (< 150); eGFR For African Americans > 60 (> 60); eGFR For Non-African Americans > 60 (> 60)
[2021-10-06 09:06] LABS: Iron 11 mcg/dL (50-170)
[2021-10-06 09:19] LABS: Ferritin 82 ng/mL (10-120)
[2021-10-06 09:20] LABS: Folate 12.1 ng/mL (3.0-16.0)
[2021-10-06 09:41] LABS: % Iron Saturation 4 % (15-50); Transferrin 184 mg/dL (203-362)
[2021-10-06] MEDS ORDERED: Cyanocobalamin (B-12) 1,000 MCG/ML VIAL SQ ONE (09:47)
[2021-10-06 10:53] LABS: Adenovirus F 40/41 PCR Not detected (Not detect); Astrovirus PCR Not detected (Not detect); C.difficile Toxin A/B Gene PCR Not detected (Not detect); Campylobacter by PCR Not detected (Not detect); Cryptosporidium by PCR Not detected (Not detect); Cyclospora cayetanensis PCR Not detected (Not detect); E. coli O157 by PCR Not detected (Not detect); Entamoeba histolytica PCR Not detected (Not detect); Enteroaggregative E.coli(EAEC) Not detected (Not detect); Enteropathogenic E.coli(EPEC) Not detected (Not detect); Enterotoxigenic E.coli (ETEC) Not detected (Not detect); Giardia lamblia PCR Not detected (Not detect); Norovirus GI/GII PCR Not detected (Not detect); Plesiomonas shigelloides PCR Not detected (Not detect); Rotavirus A PCR Not detected (Not detect); Salmonella PCR Not detected (Not detect); Sapovirus PCR Not detected (Not detect); Shig/EnteroinvasiveE coli EIEC Not detected (Not detect); Shigalike tox-prod E coli STEC Not detected (Not detect); Vibrio PCR Not detected (Not detect); Vibrio cholerae PCR Not detected (Not detect); Yersinia enterocolitica PCR Not detected (Not detect)
[2021-10-06] MEDS: Iron Sucrose Complex 200 MG in 0.9 % Sodium Chloride 100 ML IVPB SCH (11:08)
[2021-10-06 15:19] LABS: Estimated Average Glucose 126 mg/dl
[2021-10-06] MEDS: MethylPREDNISolone 40 MG/ML VIAL IVP SCH (17:38)
[2021-10-07] MEDS: MethylPREDNISolone 40 MG/ML VIAL IVP SCH ×4 (01:20→23:16)
[2021-10-07] MEDS: 0.9 % Sodium Chloride 1,000 ML IVC SCH ×3 (08:31→10:17)
[2021-10-07 08:35] LABS: Hematocrit 40.2 % (35.3-44.9); Mean Corpuscular HGB Conc 32.8 g/dL (31.6-35.5); Mean Corpuscular Hemoglobin 28.9 pg (28.0-33.3); Mean Corpuscular Volume 88.2 fL (83.0-100.0); Mean Platelet Volume 10.4 fL (9.4-12.4); Platelet Count 439 K/mcL (140-400); Red Blood Count 4.56 M/mcL (3.82-4.97); Red Cell Distribution Width 11.9 % (11.5-14.5); White Blood Count 6.4 K/mcL (4.3-11.1)
[2021-10-07] MEDS: Lactobacillus 1 EACH CAP.SPRINK PO SCH (08:43)
[2021-10-07] MEDS: cefTRIAXone 1,000 MG in 0.9 % Sodium Chloride Mini Bag 100 ML IVPB SCH (08:44)
[2021-10-07] MEDS: Multivit/Ca/Min/Fe/FA 1 TAB TABLET PO SCH (08:45)
[2021-10-07 08:46] LABS: Hemoglobin 13.2 g/dL (11.5-15.4)
[2021-10-07 08:56] LABS: BUN/Creatinine Ratio 17 (6-26); Blood Urea Nitrogen 12 mg/dL (6-20); Calcium 9.1 mg/dL (8.6-10.3); Carbon Dioxide 23 mEq/L (23-29); Chloride 101 mEq/L (98-107); Glucose 135 mg/dL (70-105); Magnesium 2.3 mg/dL (1.6-2.6); Osmolality,Calculated 282 (280-300); Phosphorous 3.8 mg/dL (2.7-4.5); Potassium 3.9 mEq/L (3.5-5.1); Sodium 135 mEq/L (136-145); eGFR For African Americans > 60 (> 60); eGFR For Non-African Americans > 60 (> 60)
[2021-10-07] MEDS: Iron Sucrose Complex 200 MG in 0.9 % Sodium Chloride 100 ML IVPB SCH (09:38)
[2021-10-07] MEDS: Ondansetron 4 MG/2 ML VIAL IVP PRN (10:58)
[2021-10-08 07:17] VITALS: TEMP 97.7
[2021-10-08 07:43] LABS: Basophils % 0.3 %; Hematocrit 41.9 % (35.3-44.9); Hemoglobin 13.5 g/dL (11.5-15.4); Immature Granulocytes % 0.9 % (0-4); Lymphocytes # 0.8 K/mcL (0.6-4.6); Lymphocytes % 10.1 %; Mean Corpuscular HGB Conc 32.2 g/dL (31.6-35.5); Mean Corpuscular Hemoglobin 28.7 pg (28.0-33.3); Mean Platelet Volume 10.4 fL (9.4-12.4); Monocytes # 0.4 K/mcL (0.0-1.3); Monocytes % 5.3 %; Neutrophils # 6.5 K/mcL (1.6-8.9); Platelet Count 495 K/mcL (140-400); Red Blood Count 4.71 M/mcL (3.82-4.97); Red Cell Distribution Width 11.9 % (11.5-14.5); Segmented Neutrophils % 83.4 %; White Blood Count 7.7 K/mcL (4.3-11.1)
[2021-10-08 07:56] LABS: BUN/Creatinine Ratio 20 (6-26); Blood Urea Nitrogen 14 mg/dL (6-20); Carbon Dioxide 28 mEq/L (23-29); Chloride 102 mEq/L (98-107); Glucose 116 mg/dL (70-105); Magnesium 2.3 mg/dL (1.6-2.6); Osmolality,Calculated 283 (280-300); Potassium 4.3 mEq/L (3.5-5.1); Sodium 136 mEq/L (136-145); eGFR For African Americans > 60 (> 60); eGFR For Non-African Americans > 60 (> 60)
[2021-10-08 08:11] LABS: Hepatitis B Surface Antigen Nonreactive (Nonreactive)
[2021-10-08] MEDS: MethylPREDNISolone 40 MG/ML VIAL IVP SCH (08:23)
[2021-10-08] MEDS: Lactobacillus 1 EACH CAP.SPRINK PO SCH (08:23)
[2021-10-08] MEDS: Multivit/Ca/Min/Fe/FA 1 TAB TABLET PO SCH (08:23)
[2021-10-08] MEDS: cefTRIAXone 1,000 MG in 0.9 % Sodium Chloride Mini Bag 100 ML IVPB SCH (08:28)
[2021-10-08 08:40] LABS: Hepatitis C Virus Antibody Nonreactive (Nonreactive)
[2021-10-08 08:42] LABS: Hepatitis A Antibody IgM Nonreactive (Nonreactive)
[2021-10-08] MEDS: Iron Sucrose Complex 200 MG in 0.9 % Sodium Chloride 100 ML IVPB SCH (09:29)
[2021-10-08 11:22] VITALS: BP 160/89; PULSE 61; O2SAT 99
[2021-10-08] MEDS: Ondansetron 4 MG/2 ML VIAL IVP PRN (14:08)
== END 2021-10-08 14:44 | disposition home or self-care (01) | DRG 386 ==
LOC: EMEROOARM 12:06 → 4WAOSI 12:06 → SUATTDRO 19:54 → 4WAOSI 21:11
PROVIDERS: ADMIT Internal Medicine; ATTEND Pharmacist